=== PATIENT | female | born 1995 | race Caucasian/White ===

== ENCOUNTER 2017-01-06 01:08 | Inpatient (IN) | payer BC, MEDICAID ==
[2017-01-06 04:19] LABS: Benzodiazepine Urine Screen None Detected (None Detect)
[2017-01-06 05:45] LABS: Hematocrit 38 % (35-47); Hemoglobin 12.7 g/dl (12.0-16.0); Mean Corpuscular HGB Conc 34 g/dl (31-36); Mean Corpuscular Hemoglobin 32 pg (27-31); Mean Corpuscular Volume 95 fL (80-97); Mean Platelet Volume 9 um3 (7.4-10.4); Red Blood Count 3.98 10^6/ul (4.0-5.4); Red Cell Distribution Width 14 % (10.5-15)
[2017-01-06] MEDS ORDERED: OBEPIDURAL* 250 ML ONE (05:48)
[2017-01-06] MEDS ORDERED: EPHEDrine (Pressors)* 50 MG/ML VIAL IV PUSH PRN ×2 (06:28)
[2017-01-06] MEDS ORDERED: Famotidine TAB* 20 MG PO PRN (06:28)
[2017-01-06] MEDS ORDERED: Sodium Citrate/Citric Acid* 15 ML UDC PO PRN (06:28)
[2017-01-06] MEDS ORDERED: Phenylephrine IV* 40 MCG/ML 10 ML SYRINGE IV PUSH PRN ×2 (06:28)
[2017-01-06] MEDS ORDERED: OBEPIDURAL* 250 ML EPIDURAL SCH (07:00)
[2017-01-06] MEDS ORDERED: Oxytocin in LR* 20 UNITS/1,000 ML BAG IVPB ONE (09:57)
[2017-01-06] MEDS ORDERED: Oxytocin in LR* 20 UNITS/1,000 ML BAG IVPB SCH ×2 (11:00→15:00)
[2017-01-06] MEDS ORDERED: Misoprostol TAB* 200 MCG PR ONE (14:01)
[2017-01-06] MEDS ORDERED: Witch Hazel PAD* JAR TOPICAL PRN (14:01)
[2017-01-06] MEDS ORDERED: Dibucaine 1% 28.35 GM TUBE PR PRN (14:01)
[2017-01-06] MEDS: Ibuprofen TAB* 600 MG PO PRN (15:10)
[2017-01-06] MEDS: Acetaminophen TAB* 325 MG PO PRN (19:40)
[2017-01-06] MEDS: Docusate CAP* 100 MG PO SCH (20:54)
[2017-01-07] MEDS: Acetaminophen TAB* 325 MG PO PRN ×2 (04:10→08:13)
[2017-01-07 07:51] LABS: Hematocrit 31 % (35-47); Hemoglobin 10.5 g/dl (12.0-16.0); Mean Corpuscular HGB Conc 34 g/dl (31-36); Mean Corpuscular Hemoglobin 33 pg (27-31); Mean Corpuscular Volume 95 fL (80-97); Mean Platelet Volume 9 um3 (7.4-10.4); Red Cell Distribution Width 14 % (10.5-15); White Blood Count 12.6 10^3/ul (3.5-10.8)
[2017-01-07] MEDS: Ibuprofen TAB* 600 MG PO PRN ×4 (08:13→20:02)
[2017-01-07] MEDS: Docusate CAP* 100 MG PO SCH ×3 (08:13→20:03)
[2017-01-07] MEDS ORDERED: Ferrous Gluconate TAB* 324 MG TAB PO SCH (09:00)
[2017-01-07 20:12] VITALS: BP 124/73
[2017-01-08] MEDS: Docusate CAP* 100 MG PO SCH (08:53)
[2017-01-08] MEDS: Ibuprofen TAB* 600 MG PO PRN (08:53)
== END 2017-01-08 10:36 | disposition home or self-care (01) | DRG 560 ==
LOC: MCHOBOUT 01:08 → MCHOB 03:52
PROVIDERS: ADMIT Midwife; ATTEND Midwife
PROC: 10907ZC Drainage of Amniotic Fluid, Therapeutic from Products of Conception, Via Natural or Artificial Opening (ICD-10-PCS; principal; 2017-01-06)
PROC: 10E0XZZ Delivery of Products of Conception, External Approach (ICD-10-PCS; 2017-01-06)
PROC: 4A1HX4Z Monitoring of Products of Conception, Cardiac Electrical Activity, External Approach (ICD-10-PCS; 2017-01-06)
DX: O48.0 Post-term pregnancy (principal); J45.909 Unspecified asthma, uncomplicated; O99.52 Diseases of the respiratory system complicating childbirth; Z3A.40 40 weeks gestation of pregnancy; Z37.0 Single live birth; O71.89 Other specified obstetric trauma
CPT/HCPCS: 36415; 80307; 85025; 86850; 86900; 86901; A9270-GY

== ENCOUNTER 2017-04-24 13:43 | Emergency (ER) | payer BC, MEDICAID ==
[2017-04-24 15:11] LABS: ABS Basophils 0 10^3/ul (0-0.2); ABS Eosinophils 0.2 10^3/ul (0-0.6); ABS Lymphocytes 2.5 10^3/ul (1.0-4.8); ABS Monocytes 0.5 10^3/ul (0-0.8); ABS Nucleated RBC 0 10^3/ul; Eosinophil % 2.7 % (0-6); Hematocrit 39 % (35-47); Hemoglobin 13.1 g/dl (12.0-16.0); Lymphocyte % 40.6 % (25-47); Mean Corpuscular HGB Conc 34 g/dl (31-36); Mean Corpuscular Hemoglobin 31 pg (27-31); Mean Corpuscular Volume 91 fL (80-97); Mean Platelet Volume 9 um3 (7.4-10.4); Nucleated Red Blood Cells % 0.1; Platelet Count 217 10^3/ul (150-450); Red Blood Count 4.25 10^6/ul (4.0-5.4); Red Cell Distribution Width 14 % (10.5-15); White Blood Count 6.2 10^3/ul (3.5-10.8)
--- NOTE | 2017-04-24 16:36 | RAD ---
INDICATION: Pelvic pain. Evaluate IUD COMPARISON: None TECHNIQUE: Longitudinal and transverse transabdominal and transvaginal scans of the pelvis were obtained. FINDINGS: Uterus: The uterus is normal in size. There are no focal masses. The uterus measures 7.7 x 4.8 x 5.3 cm. Endometrial thickness: The endometrial thickness is measured at 0.6 cm. There is an IUD in expected position. Free fluid: There is trace free fluid . Ovaries: The ovaries are normal in size. The right ovary measures 3.4 x 2.3 x 3.9 cm. The left ovary measures 2.8 x 2.5 x 3.7 cm. . Doppler interrogation demonstrates flow to each ovary. Other: None IMPRESSION: IUD IN EXPECTED POSITION. NORMAL OVARIES.
[2017-04-24 17:57] VITALS: BP 130/83
--- NOTE | 2017-04-24 21:59 | ED ---
Wilmer Gutiérrez Stephanie, scribed for Gurdeep Sanchez MD on 04/24/17 at 1635 . Abdominal Pain/Female - HPI Summary HPI Summary: The pt is a 22 y/o F presenting to the ED with c/o abd pain that began s/p IUD placement on 04/09/17. The pt states she was able to feel the strings of the IUD after it was implanted however, now she cannot feel them. The abd pain was intermittent at onset however became constant today. She states that when she moves a certain way, she feels something being pulled. The pain is a 6 in severity. LKMP was on 04/18/17. The pt denies vaginal discharge, fever, chills and abnormal BM. The pt has been spotting since implantation of the IUD. - History of Current Complaint Chief Complaint: EDAbdPain Stated Complaint: ABD PAIN Time Seen by Provider: 04/24/17 15:52 Hx Obtained From: Patient Hx Last Menstrual Period: 1.5 months ago Onset/Duration: Gradual Onset, Still Present Timing: Constant - since today Severity Currently: Moderate Pain Intensity: 6 Pain Scale Used: 0-10 Numeric Location: Diffuse Radiates: No Aggravating Factor(s): Movement Alleviating Factor(s): Nothing Associated Signs and Symptoms: Positive: Other: - Negative: chills, abnormal BM. Negative: Fever, Vaginal Discharge Allergies/Adverse Reactions: Allergies Allergy/AdvReac Type Severity Reaction Status Date / Time No Known Allergies Allergy Verified 04/24/17 13:50 PMH/Surg Hx/FS Hx/Imm Hx Respiratory History: Reports: Hx Asthma Sensory History: Denies: Hx Legally Blind EENT History: Denies: Hx Deafness - Surgical History Surgery Procedure, Year, and Place: NONE - Immunization History Date of Tetanus Vaccine: Mother states she thinks her daughter got it two years ago Infectious Disease History: No Infectious Disease History: Denies: Traveled Outside the [place] in Last 30 Days - Family History Known Family History: Positive: Other - NONCONTRIBUTORY - Social History Occupation: Student Lives: Dormitory/Roommates Alcohol Use: None Substance Use Type: Reports: None Substance Use Comment - Amount & Last Used: hx drug use Smoking Status (MU): Current Some Day Smoker Type: Cigarettes Amount Used/How Often: 4 cigs Length of Time of Smoking/Using Tobacco: 3.5 years Have You Smoked in the Last Year: Yes Review of Systems Negative: Fever, Chills Positive: Abdominal Pain, Other - Negative: abnormal BM Negative: discharge All Other Systems Reviewed And Are Negative: Yes Physical Exam - Summary Physical Exam Summary: General: well-appearing, no pain distress Skin: warm, color reflects adequate perfusion, dry Head: normal Eyes: EOMI, SHIV ENT: normal Neck: supple, nontender Respiratory: CTA, breath sounds present Cardiovascular: RRR Abdomen: soft, nontender Bowel: present Musculoskeletal: normal, strength/ROM intact Neurological: normal, sensory/motor intact,A&O x3 Psychological: affect/mood appropriate Triage Information Reviewed: Yes Vital Signs On Initial Exam: Initial Vitals Temp Pulse Resp BP Pulse Ox 98.4 F 73 16 139/90 98 04/24/17 13:47 04/24/17 13:47 04/24/17 13:47 04/24/17 13:47 04/24/17 13:47 Vital Signs Reviewed: Yes Diagnostics - Vital Signs Vital Signs Temp Pulse Resp BP Pulse Ox 04/24/17 16:00 66 99 04/24/17 15:00 62 99 04/24/17 14:33 72 98 04/24/17 14:31 131/69 04/24/17 13:47 98.4 F 73 16 139/90 98 - Laboratory Lab Results: Lab Results 04/24/17 04/24/17 04/24/17 Range/Units 15:01 15:01 15:01 WBC 6.2 (3.5-10.8) 10^3/ul RBC 4.25 (4.0-5.4) 10^6/ul Hgb 13.1 (12.0-16.0) g/dl Hct 39 (35-47) % MCV 91 (80-97) fL MCH 31 (27-31) pg MCHC 34 (31-36) g/dl RDW 14 (10.5-15) % Plt Count 217 (150-450) 10^3/ul MPV 9 (7.4-10.4) um3 Neut % (Auto) 48.7 (38-83) % Lymph % (Auto) 40.6 (25-47) % Dillon % (Auto) 7.4 H (0-7) % Eos % (Auto) 2.7 (0-6) % Baso % (Auto) 0.6 (0-2) % Absolute Neuts (auto) 3.0 (1.5-7.7) 10^3/ul Absolute Lymphs (auto) 2.5 (1.0-4.8) 10^3/ul Absolute Monos (auto) 0.5 (0-0.8) 10^3/ul Absolute Eos (auto) 0.2 (0-0.6) 10^3/ul Absolute Basos (auto) 0 (0-0.2) 10^3/ul Absolute Nucleated RBC 0 10^3/ul Nucleated RBC % 0.1 Sodium 136 (133-145) mmol/L Potassium 3.9 (3.5-5.0) mmol/L Chloride 106 (101-111) mmol/L Carbon Dioxide 25 (22-32) mmol/L Anion Gap 5 (2-11) mmol/L BUN 12 (6-24) mg/dL Creatinine 0.60 (0.51-0.95) mg/dL Est GFR ( Amer) 160.8 (>60) Est GFR (Non-Af Amer) 125.0 (>60) BUN/Creatinine Ratio 20.0 (8-20) Glucose 85 (70-100) mg/dL Lactic Acid 0.5 (0.5-2.0) mmol/L Calcium 9.2 (8.6-10.3) mg/dL Total Bilirubin 0.30 (0.2-1.0) mg/dL AST 16 (13-39) U/L ALT 15 (7-52) U/L Alkaline Phosphatase 84 (34-104) U/L C-Reactive Protein 2.14 (< 5.00) mg/L Total Protein 7.0 (6.4-8.9) g/dL Albumin 4.0 (3.2-5.2) g/dL Globulin 3.0 (2-4) g/dL Albumin/Globulin Ratio 1.3 (1-3) Result Diagrams: 04/24/17 15:01 04/24/17 15:01 Lab Statement: Any lab studies that have been ordered have been reviewed, and results considered in the medical decision making process. - Additional Comments Diagnostic Additional Comments: Transvaginal US shows: IUD IN EXPECTED POSITION. NORMAL OVARIES. Abdominal Pain Fem Course/Dx - Course Course Of Treatment: BP noted and advised to follow up with PCP. DISCUSSED RESULTS WITH PATIENT. F/U WITH OBGYN; RETURN IF WORSE. - Diagnoses Provider Diagnoses: Elevated blood pressure reading without diagnosis of hypertension, Pelvic pain Discharge - Discharge Plan Condition: Stable Disposition: HOME Patient Education Materials: Pelvic Pain in Women (ED) Referrals: Carina Concepcion MD [Primary Care Provider] - Additional Instructions: FOLLOW UP WITH YOUR ONGYN TOMORROW, 04/25/17, SCHEDULED. RETURN TO THE EMERGENCY DEPARTMENT FOR ANY WORSENING OF YOUR CONDITION; PAIN, FEVER, ABNORMAL BLEEDING,YOU FEEL ILL, YOU FEEL LIKE PASSING OUT OR QUESTIONS OR CONCERNS. YOUR BLOOD PRESSURE WAS ELEVATED TODAY; FOLLOW UP WITH YOUR PRIMARY CARE DOCTOR WITHIN THE NEXT 1 WEEK. The documentation as recorded by the Wilmer martinez Stephanie accurately reflects the service I personally performed and the decisions made by me, Gurdeep Sanchez MD.
== END 2017-04-24 17:56 | disposition home or self-care (01) ==
LOC: ED 13:43
DX: R10.2 Pelvic and perineal pain (principal); R03.0 Elevated blood-pressure reading, without diagnosis of hypertension; Z97.5 Presence of (intrauterine) contraceptive device; F17.210 Nicotine dependence, cigarettes, uncomplicated; J45.909 Unspecified asthma, uncomplicated
CPT/HCPCS: 36415; 76830; 80053; 83605; 85025; 86140; 99283

== ENCOUNTER 2021-12-16 19:35 | Inpatient (IN) ==
[2021-12-16] MEDS ORDERED: Nalbuphine 10 MG/ML 1 ML VIAL IV PRN (20:31)
[2021-12-16] MEDS ORDERED: Buffered Lidocaine 1% SYRIN 1 ml INTRADERM ONE (20:31)
[2021-12-16] MEDS ORDERED: Promethazine INJ(RESTRICTED) 25 MG/ML 1 ml VIAL IV PRN (20:31)
[2021-12-16] MEDS ORDERED: Oxytocin in LR 20,000 MILLI.UNIT/1,000 ML BAG IV SCH (20:45)
[2021-12-16] MEDS ORDERED: Lactated Ringers 1000 ml BAG 1,000 ML IV SCH (21:00)
[2021-12-16 22:57] LABS: Hematocrit 35 % (35-47); Hemoglobin 11.3 g/dL (12.0-16.0); Mean Corpuscular HGB Conc 33 g/dL (31-36); Mean Corpuscular Hemoglobin 31 pg (27-31); Mean Corpuscular Volume 95 fL (80-97); Mean Platelet Volume 9.1 fL (7.4-10.4); Platelet Count 164 10^3/uL (150-450); Red Blood Count 3.64 10^6 /uL (3.70-4.87); Red Cell Distribution Width 15 % (10-15); White Blood Count 8.8 10^3/uL (3.5-10.8)
[2021-12-16 23:17] LABS: Urine Benzodiazepine Screen None Detected (None Detect); Urine Cannabinoids Screen Presumptive Positive (None Detect); Urine Opiates Screen None Detected (None Detect)
[2021-12-16] MEDS: Lactated Ringers 1000 ml BAG 1,000 ML IV ONE (23:30)
[2021-12-17 01:11] LABS: ABS Eosinophils 0.1 10^3/ul (0-0.6); ABS Lymphocytes 2.4 10^3/ul (1.0-4.8); ABS Monocytes 0.7 10^3/ul (0-0.8); ABS Neutrophils 5.5 10^3/ul (1.5-7.7); Eosinophil % 1.5 %; Lymphocyte % 27.3 %
[2021-12-17] MEDS ORDERED: fentaNYL 100 mcg/2 ml 50 MCG/ML VIAL IV SLOW PU ONE (04:50)
[2021-12-17] MEDS ORDERED: fentaNYL 100 mcg/2 ml 50 MCG/ML VIAL ONE ×2 (04:51→04:52)
[2021-12-17] MEDS ORDERED: OBEPIDURAL (200 ML) 200 ML EPIDURAL ONE (05:30)
[2021-12-17] MEDS ORDERED: Sodium Citrate/Citric Acid LIQ 15 ML UDC PO PRN (05:47)
[2021-12-17] MEDS ORDERED: Lactated Ringers 1000 ml BAG 1,000 ML IV ONE (05:47)
[2021-12-17] MEDS ORDERED: Phenylephrine 40 mcg/mL 10mL (400mcg) SYRINGE IV PUSH PRN ×2 (05:47)
[2021-12-17] MEDS ORDERED: Lactated Ringers 1000 ml BAG 1,000 ML IV SCH ×2 (06:00→08:00)
[2021-12-17] MEDS ORDERED: OBEPIDURAL (200 ML) 200 ML EPIDURAL SCH (06:00)
[2021-12-17] MEDS ORDERED: Witch Hazel PAD JAR TOPICAL PRN (07:17)
[2021-12-17] MEDS ORDERED: Dibucaine 1% OINT 28.35 GM TUBE PR PRN (07:17)
[2021-12-17] MEDS ORDERED: Oxytocin in LR 20,000 MILLI.UNIT/1,000 ML BAG IV SCH (07:30)
[2021-12-17] MEDS: Lactated Ringers 1000 ml BAG 1,000 ML IV ONE (19:23)
[2021-12-18 07:43] LABS: ABS Eosinophils 0.1 10^3/ul (0-0.6); ABS Lymphocytes 2.6 10^3/ul (1.0-4.8); ABS Monocytes 0.9 10^3/ul (0-0.8); ABS Neutrophils 6.6 10^3/ul (1.5-7.7); Eosinophil % 1.4 %; Hematocrit 36 % (35-47); Hemoglobin 12.1 g/dL (12.0-16.0); Lymphocyte % 25.3 %; Mean Corpuscular HGB Conc 34 g/dL (31-36); Mean Corpuscular Hemoglobin 32 pg (27-31); Mean Corpuscular Volume 95 fL (80-97); Mean Platelet Volume 8.8 fL (7.4-10.4); Platelet Count 141 10^3/uL (150-450); Red Blood Count 3.78 10^6 /uL (3.70-4.87); Red Cell Distribution Width 15 % (10-15); White Blood Count 10.3 10^3/uL (3.5-10.8)
[2021-12-18 08:17] VITALS: BP 138/81
== END 2021-12-18 12:39 | disposition home or self-care (01) | DRG 560 ==
LOC: MCHOBOUT 19:35 → MCHOB 20:48
PROVIDERS: ADMIT Midwife; ATTEND Midwife